=== PATIENT | male | born 1975 | race Caucasian/White ===

== ENCOUNTER 2021-10-29 12:01 | Inpatient (IN) ==
[2021-10-29] MEDS ORDERED: PANTOprazole 40 MG in SYRINGE 0 ML IV ONE (12:53)
[2021-10-29] MEDS ORDERED: PANTOprazole 80 MG in DEXTROSE 5% 100 ML IV ONE (12:53)
[2021-10-29] MEDS ORDERED: SODIUM CHLORIDE 0.9% 250 ML IV PRN (12:54)
--- NOTE | 2021-10-29 12:57 | Emergency Department Note ---
Impression & Plan Acute GI bleeding, Dark stools, Dark emesis, Acute hyponatremia, COVID-19 ED Provider Note NAME: INDERJIT [id number] MARIANO AGE: 45 SEX: M : 1975 ARRIVES VIA: Ambulance INFORMANT: Patient ED PROVIDER(S): Tyrell Eller DO CHIEF COMPLAINT: GI bleed HPI: Patient is a 45-year-old male who presents to the ER for vomiting up coffee-ground emesis/black material as well as having dark black stools. He was from the [facility] he was found to be hypotensive and tachycardic. He notes that over the past 2 days he has been taking about 10 tabs of Motrin daily. No chest pain or shortness of breath. He does feel nauseated in the stomach. No dysuria urgency or frequency. He has never had this before. He does not take any steroids or any blood thinners. No other exacerbating or remitting factors. No iron. ROS: See above HPI for pertinent positives & negatives. A total of 10 systems reviewed and were otherwise negative. PAST MEDICAL HISTORY:See Below PAST SURGICAL HISTORY:See Below FAMILY HISTORY:See Below SOCIAL HISTORY:See Below HOME MEDICATIONS:See Below ALLERGIES:See Below VITALS:See Below PHYSICAL EXAMINATION: GENERAL: Sitting up in bed, alert, slightly ill-appearing, disheveled EYE EXAM: normal conjunctiva. PERRL and EOM's grossly intact. OROPHARYNX: no exudate, no erythema, lips, buccal mucosa, and tongue normal and mucous membranes are moist NECK: supple, no nuchal rigidity, no adenopathy, non-tender LUNGS: Clear to auscultation. Normal chest wall mechanics HEART: no murmurs, S1 normal and S2 normal ABDOMEN: abdomen soft, non-tender, normo-active bowel sounds, no masses, no rebound or guarding. RECTAL: Heme positive stool slightly darker UPPER EXTREMITIES: upper extremities are grossly normal. LOWER EXTREMITIES: No pitting edema. NEURO EXAM: Normal sensorium, cranial nerves II-XII grossly intact, normal speech, no gross weakness of arms, no gross weakness of legs. MEDICAL DECISION MAKING: Patient is a 45-year-old male who presents the ER for vomiting up blood and dark tarry stools. He was found to the presenting hypotensive and tachycardic. Upon arrival systolic pressures were in the 90s and heart rate was in the 120s. 2 IVs were established blood work was obtained. He was ordered uncrossed blood and this was hung prior to the result of his CBC which eventually showed a hemoglobin of 10. Platelets were appropriate. INR unremarkable. BMP with mild hypokalemia. BUN was elevated at 38 suggesting and confirming upper GI bleed likely. Mag was slightly low. LFTs bilirubin and troponin were negative. Patient was COVID-positive. He was given 2 L of IV fluids. He was updated bedside. Discussed with Zo Arguelles who agrees with CT and admission to medicine and they will likely scope in the morning. Discussed with Dr. Fransico Mitchell from [facility] for further evaluation and admission. Triage Nursing notes reviewed. Limited review of prior medical records performed Vital Signs: reviewed and remarkable for tachy Differential diagnosis: Differential diagnosis includes etiologies such as diverticulitis, diverticulosis, AVM, coagulopathy, colitis, inflammatory bowel disease, malignancy, Jazzy-Green tear, esophagitis, peptic ulcer disease, variceal bleed, gastritis, epistaxis, fissure, hemorrhoids, as well as others were entertained. ER treatment provided: See below Diagnostics interpreted by me: ECG: Sinus tachycardia rate of 113 Normal axis No PVCs QTC 447 Cardiac Monitoring: An order was placed for continuous cardiac monitoring. The monitor shows a rate of 110 with sinus rhythm. Laboratory studies: As stated above and show below. Imaging studies: CT abdomen pelvis was unremarkable Consultation(s): As described above discussed with gastroenterology as well as the hospitalist Procedures: none Critical Care: I have personally spent 35 minutes of critical care time in the direct management of this patient. This includes bedside care, interpretation of diagnostic studies, and testing, discussion with consultants, patient, and family members, and other required patient management activities. This 35 minutes is in excess of all separately billable procedures. Past Med/Surg History Medical History (Updated 10/29/21 @ 18:56 by Tyrell Eller DO) No pertinent past medical history Surgical History (Updated 10/29/21 @ 15:59 by Jaya Mitchell) No pertinent past surgical history Family History (Updated 10/29/21 @ 16:00 by Jaya Mitchell) Father , age 48; NH? Heart disease Denies family history of Digestive system disease Social History (Updated 10/29/21 @ 16:01 by Jaya Barnes Smoking Status: Former smoker Tobacco Type: Cigarettes Age Started Using Tobacco: 20; Age Quit Using Tobacco: 44; packs per day: 1.5; Hx Alcohol Use: No Hx Substance Use: No marital status: Single Current Living Situation: Other Current Living Situation Comment: incarcerated current occupational status: previously employed Allergies Allergies Allergy/AdvReac Type Severity Reaction Status Date / Time No Known Drug Allergies Allergy Unknown Unknown Unverified 10/29/21 13:45 Home Meds Home Medications Medication Instructions Recorded Confirmed No Known Home Medications 10/29/21 10/29/21 Results & Data (ED) Vital Signs Vital Signs - 24 hr 10/29/21 12:18 10/29/21 13:30 10/29/21 13:38 Temperature 37 C 37.1 C 37.1 C Temperature Source Oral Oral Oral Pulse Rate 110 H 110 H 109 H Pulse Rate from SpO2 Sensor Pulse Rhythm Respiratory Rate 18 19 16 Respiratory Effort / Characteristics Non-Labored Spontaneous Respiratory Depth Normal Blood Pressure 104/61 110/81 110/81 Blood Pressure Mean 75 90 90 Blood Pressure Position Pulse Oximetry 99 Oxygen Delivery Method Room Air Sepsis Recent Fever Within 48 Hours No Sepsis New/Unexplained Change in Mental Status No Sepsis Action Taken by Nursing No Action Required 10/29/21 12:53 10/29/21 13:53 10/29/21 14:08 Temperature 37.3 C 37.2 C Temperature Source Oral Oral Pulse Rate 111 H 108 H Pulse Rate from SpO2 Sensor Pulse Rhythm Regular Regular Respiratory Rate 17 17 Respiratory Effort / Characteristics Respiratory Depth Blood Pressure 114/74 120/82 Blood Pressure Mean 87 94 Blood Pressure Position Lying Lying Pulse Oximetry 99 100 100 Oxygen Delivery Method Room Air Sepsis Recent Fever Within 48 Hours Sepsis New/Unexplained Change in Mental Status Sepsis Action Taken by Nursing 10/29/21 14:38 10/29/21 15:38 10/29/21 13:00 Temperature 37.4 C 37.6 C H Temperature Source Oral Oral Pulse Rate 104 H 112 H 115 H Pulse Rate from SpO2 Sensor 113 H Pulse Rhythm Respiratory Rate 20 20 21 Respiratory Effort / Characteristics Respiratory Depth Blood Pressure 122/77 112/78 Blood Pressure Mean 92 89 Blood Pressure Position Lying Pulse Oximetry 100 100 98 Oxygen Delivery Method Sepsis Recent Fever Within 48 Hours Sepsis New/Unexplained Change in Mental Status Sepsis Action Taken by Nursing 10/29/21 13:01 10/29/21 13:01 10/29/21 13:07 Temperature Temperature Source Pulse Rate 110 H Pulse Rate from SpO2 Sensor 110 H Pulse Rhythm Respiratory Rate 16 Respiratory Effort / Characteristics Respiratory Depth Blood Pressure 110/77 111/74 Blood Pressure Mean 88 86 Blood Pressure Position Pulse Oximetry 98 Oxygen Delivery Method Sepsis Recent Fever Within 48 Hours Sepsis New/Unexplained Change in Mental Status Sepsis Action Taken by Nursing 10/29/21 13:07 10/29/21 13:30 10/29/21 13:30 Temperature Temperature Source Pulse Rate 107 H 96 H Pulse Rate from SpO2 Sensor 104 H 99 H Pulse Rhythm Respiratory Rate 17 9 L Respiratory Effort / Characteristics Respiratory Depth Blood Pressure 113/77 Blood Pressure Mean 89 Blood Pressure Position Pulse Oximetry 99 100 Oxygen Delivery Method Sepsis Recent Fever Within 48 Hours Sepsis New/Unexplained Change in Mental Status Sepsis Action Taken by Nursing 10/29/21 13:32 10/29/21 13:32 10/29/21 13:45 Temperature Temperature Source Pulse Rate 109 H Pulse Rate from SpO2 Sensor 110 H Pulse Rhythm Respiratory Rate 16 Respiratory Effort / Characteristics Respiratory Depth Blood Pressure 110/81 120/76 Blood Pressure Mean 90 90 Blood Pressure Position Pulse Oximetry 100 Oxygen Delivery Method Sepsis Recent Fever Within 48 Hours Sepsis New/Unexplained Change in Mental Status Sepsis Action Taken by Nursing 10/29/21 13:45 10/29/21 13:53 10/29/21 13:53 Temperature Temperature Source Pulse Rate 108 H 117 H Pulse Rate from SpO2 Sensor 108 H 117 H Pulse Rhythm Respiratory Rate 19 16 Respiratory Effort / Characteristics Respiratory Depth Blood Pressure 114/74 Blood Pressure Mean 87 Blood Pressure Position Pulse Oximetry 100 99 Oxygen Delivery Method Sepsis Recent Fever Within 48 Hours Sepsis New/Unexplained Change in Mental Status Sepsis Action Taken by Nursing 10/29/21 14:00 10/29/21 14:00 10/29/21 14:12 Temperature Temperature Source Pulse Rate 111 H Pulse Rate from SpO2 Sensor 111 H Pulse Rhythm Respiratory Rate 18 Respiratory Effort / Characteristics Respiratory Depth Blood Pressure 121/78 120/82 Blood Pressure Mean 92 94 Blood Pressure Position Pulse Oximetry 100 Oxygen Delivery Method Sepsis Recent Fever Within 48 Hours Sepsis New/Unexplained Change in Mental Status Sepsis Action Taken by Nursing 10/29/21 14:12 10/29/21 14:15 10/29/21 14:15 Temperature Temperature Source Pulse Rate 104 H 115 H Pulse Rate from SpO2 Sensor 104 H 115 H Pulse Rhythm Respiratory Rate 19 26 H Respiratory Effort / Characteristics Respiratory Depth Blood Pressure 132/82 Blood Pressure Mean 98 Blood Pressure Position Pulse Oximetry 100 100 Oxygen Delivery Method Sepsis Recent Fever Within 48 Hours Sepsis New/Unexplained Change in Mental Status Sepsis Action Taken by Nursing 10/29/21 14:30 10/29/21 14:30 10/29/21 14:39 Temperature Temperature Source Pulse Rate 110 H 105 H Pulse Rate from SpO2 Sensor 110 H 105 H Pulse Rhythm Respiratory Rate 21 21 Respiratory Effort / Characteristics Respiratory Depth Blood Pressure 126/77 Blood Pressure Mean 93 Blood Pressure Position Pulse Oximetry 100 100 Oxygen Delivery Method Sepsis Recent Fever Within 48 Hours Sepsis New/Unexplained Change in Mental Status Sepsis Action Taken by Nursing 10/29/21 14:39 10/29/21 14:45 10/29/21 14:45 Temperature Temperature Source Pulse Rate 103 H Pulse Rate from SpO2 Sensor 103 H Pulse Rhythm Respiratory Rate 22 Respiratory Effort / Characteristics Respiratory Depth Blood Pressure 122/77 118/75 Blood Pressure Mean 92 89 Blood Pressure Position Pulse Oximetry 100 Oxygen Delivery Method Sepsis Recent Fever Within 48 Hours Sepsis New/Unexplained Change in Mental Status Sepsis Action Taken by Nursing 10/29/21 15:00 10/29/21 15:00 10/29/21 15:15 Temperature Temperature Source Pulse Rate 106 H Pulse Rate from SpO2 Sensor 106 H Pulse Rhythm Respiratory Rate 24 Respiratory Effort / Characteristics Respiratory Depth Blood Pressure 113/74 124/83 Blood Pressure Mean 87 96 Blood Pressure Position Pulse Oximetry 99 Oxygen Delivery Method Sepsis Recent Fever Within 48 Hours Sepsis New/Unexplained Change in Mental Status Sepsis Action Taken by Nursing 10/29/21 15:15 Temperature Temperature Source Pulse Rate 103 H Pulse Rate from SpO2 Sensor 109 H Pulse Rhythm Respiratory Rate 22 Respiratory Effort / Characteristics Respiratory Depth Blood Pressure Blood Pressure Mean Blood Pressure Position Pulse Oximetry 99 Oxygen Delivery Method Sepsis Recent Fever Within 48 Hours Sepsis New/Unexplained Change in Mental Status Sepsis Action Taken by Nursing Laboratory Data Result diagrams: 10/29/21 13:02 10/29/21 13:02 Lab Results 10/29/21 10/29/21 10/29/21 Range/Units 13:02 13:02 13:02 WBC 5.01 (4.8-10.8) K/ul RBC 3.65 L (4.63-6.08) M/uL Hgb 10.6 L (14.0-18.0) g/dl POC Hgb (14.0-18.0) g/dl Hct 30.7 L (40.1-51.0) % POC Hct (42-52) % MCV 84.1 (80.0-100.0) fL MCH 29.0 (25.0-34.0) pg MCHC 34.5 (32.0-36.0) g/dL RDW Std Deviation 40.8 (36.4-46.3) fL RDW Coeff of Paula 13.1 (11.5-14.5) % Plt Count 185 (130-400) K/uL MPV 9.2 L (9.4-12.4) fL Immature Gran % (Auto) 0.4 % Neut % (Auto) 79.8 % Lymph % (Auto) 7.4 % [place] % (Auto) 12.2 % Eos % (Auto) 0.0 % Baso % (Auto) 0.2 % Neut # (Auto) 4.00 (1.4-6.5) K/uL Lymph # (Auto) 0.37 L (1.2-3.4) K/uL [place] # (Auto) 0.61 (0.24-0.82) K/uL Eos # (Auto) 0.00 (0-0.50) K/uL Baso # (Auto) 0.01 (0-0.2) K/uL Immature Gran # (Auto) 0.02 (0.00-0.02) K/uL PT 11.1 (9.0-12.0) Seconds INR 1.0 (0.9-1.1) APTT 27.6 (21.0-31.0) Seconds PTT Ratio 1.0 POC Sodium (135-144) mmol/L Sodium (136-145) mmol/L POC Potassium (3.3-5.0) mmol/L Potassium (3.5-5.1) mmol/L POC Chloride (101-112) mmol/L Chloride (98-107) mmol/L Carbon Dioxide (21-32) mmol/L POC Total CO2 (24-31) mmol/L Anion Gap (3-11) POC Anion Gap (16-25) mmol/L POC BUN (7-18) mg/dl BUN (6-23) mg/dl Creatinine (0.6-1.4) mg/dl POC Creatinine (0.6-1.3) mg/dl Est Cr Clr Drug Dosing ml/min Est GFR ( Amer) ml/min Est GFR (Non-Af Amer) ml/min BUN/Creatinine Ratio (10-20) Glucose (70-99(Fasting)) mg/dl POC Glucose (other) (70-99) mg/dl Calcium (8.5-10.1) mg/dl POC Ioniz Calcium Lili (1.12-1.32) mmol/l Magnesium (1.7-2.4) mg/dl Iron (35-175) mcg/dl TIBC (250-450) mcg/dl Unsaturated IBC (155-355) mcg/dl Transferrin % Sat (20-50) % Ferritin (8-388) ng/ml Total Bilirubin (0.2-1.0) mg/dl AST (13-39) U/L ALT (7-52) U/L Alkaline Phosphatase (34-104) U/L Troponin I High Sens (0-20) pg/ml Total Protein (6.0-8.3) gm/dl Albumin (3.4-5.0) gm/dl Globulin (2.5-4.0) gm/dl Albumin/Globulin Ratio (0.9-2) Lipase (11-82) U/L SARS-CoV-2, RNA, NAAT (NEGATIVE) Blood Type A Positive Blood Type Recheck Antibody Screen NEGATIVE Crossmatch See Detail 10/29/21 10/29/21 10/29/21 Range/Units 13:02 13:02 13:12 WBC (4.8-10.8) K/ul RBC (4.63-6.08) M/uL Hgb (14.0-18.0) g/dl POC Hgb (14.0-18.0) g/dl Hct (40.1-51.0) % POC Hct (42-52) % MCV (80.0-100.0) fL MCH (25.0-34.0) pg MCHC (32.0-36.0) g/dL RDW Std Deviation (36.4-46.3) fL RDW Coeff of Paula (11.5-14.5) % Plt Count (130-400) K/uL MPV (9.4-12.4) fL Immature Gran % (Auto) % Neut % (Auto) % Lymph % (Auto) % [place] % (Auto) % Eos % (Auto) % Baso % (Auto) % Neut # (Auto) (1.4-6.5) K/uL Lymph # (Auto) (1.2-3.4) K/uL [place] # (Auto) (0.24-0.82) K/uL Eos # (Auto) (0-0.50) K/uL Baso # (Auto) (0-0.2) K/uL Immature Gran # (Auto) (0.00-0.02) K/uL PT (9.0-12.0) Seconds INR (0.9-1.1) APTT (21.0-31.0) Seconds PTT Ratio POC Sodium (135-144) mmol/L Sodium 134 L (136-145) mmol/L POC Potassium (3.3-5.0) mmol/L Potassium 3.9 (3.5-5.1) mmol/L POC Chloride (101-112) mmol/L Chloride 99 (98-107) mmol/L Carbon Dioxide 26 (21-32) mmol/L POC Total CO2 (24-31) mmol/L Anion Gap 9 (3-11) POC Anion Gap (16-25) mmol/L POC BUN (7-18) mg/dl BUN 38 H (6-23) mg/dl Creatinine 1.10 (0.6-1.4) mg/dl POC Creatinine (0.6-1.3) mg/dl Est Cr Clr Drug Dosing 70.8 ml/min Est GFR ( Amer) 94.8 ml/min Est GFR (Non-Af Amer) 81.8 ml/min BUN/Creatinine Ratio 34.5 H (10-20) Glucose 114 H (70-99(Fasting)) mg/dl POC Glucose (other) (70-99) mg/dl Calcium 8.4 L (8.5-10.1) mg/dl POC Ioniz Calcium Lili (1.12-1.32) mmol/l Magnesium 1.6 L (1.7-2.4) mg/dl Iron 13 L (35-175) mcg/dl TIBC 218 L (250-450) mcg/dl Unsaturated IBC 205 (155-355) mcg/dl Transferrin % Sat 6 L (20-50) % Ferritin 169.6 (8-388) ng/ml Total Bilirubin 0.2 (0.2-1.0) mg/dl AST 23 (13-39) U/L ALT 23 (7-52) U/L Alkaline Phosphatase 62 (34-104) U/L Troponin I High Sens 5.6 (0-20) pg/ml Total Protein 6.2 (6.0-8.3) gm/dl Albumin 3.6 (3.4-5.0) gm/dl Globulin 2.6 (2.5-4.0) gm/dl Albumin/Globulin Ratio 1.4 (0.9-2) Lipase 14 (11-82) U/L SARS-CoV-2, RNA, NAAT (NEGATIVE) Blood Type Blood Type Recheck A Positive Antibody Screen Crossmatch 10/29/21 10/29/21 Range/Units 13:19 13:50 WBC (4.8-10.8) K/ul RBC (4.63-6.08) M/uL Hgb (14.0-18.0) g/dl POC Hgb 10.2 L (14.0-18.0) g/dl Hct (40.1-51.0) % POC Hct 30 L (42-52) % MCV (80.0-100.0) fL MCH (25.0-34.0) pg MCHC (32.0-36.0) g/dL RDW Std Deviation (36.4-46.3) fL RDW Coeff of Paula (11.5-14.5) % Plt Count (130-400) K/uL MPV (9.4-12.4) fL Immature Gran % (Auto) % Neut % (Auto) % Lymph % (Auto) % [place] % (Auto) % Eos % (Auto) % Baso % (Auto) % Neut # (Auto) (1.4-6.5) K/uL Lymph # (Auto) (1.2-3.4) K/uL [place] # (Auto) (0.24-0.82) K/uL Eos # (Auto) (0-0.50) K/uL Baso # (Auto) (0-0.2) K/uL Immature Gran # (Auto) (0.00-0.02) K/uL PT (9.0-12.0) Seconds INR (0.9-1.1) APTT (21.0-31.0) Seconds PTT Ratio POC Sodium 134 L (135-144) mmol/L Sodium (136-145) mmol/L POC Potassium 3.9 (3.3-5.0) mmol/L Potassium (3.5-5.1) mmol/L POC Chloride 98 L (101-112) mmol/L Chloride (98-107) mmol/L Carbon Dioxide (21-32) mmol/L POC Total CO2 24 (24-31) mmol/L Anion Gap (3-11) POC Anion Gap 17.0 (16-25) mmol/L POC BUN 32 H (7-18) mg/dl BUN (6-23) mg/dl Creatinine (0.6-1.4) mg/dl POC Creatinine 1.1 (0.6-1.3) mg/dl Est Cr Clr Drug Dosing ml/min Est GFR ( Amer) ml/min Est GFR (Non-Af Amer) ml/min BUN/Creatinine Ratio (10-20) Glucose (70-99(Fasting)) mg/dl POC Glucose (other) 117 H (70-99) mg/dl Calcium (8.5-10.1) mg/dl POC Ioniz Calcium Lili 1.18 (1.12-1.32) mmol/l Magnesium (1.7-2.4) mg/dl Iron (35-175) mcg/dl TIBC (250-450) mcg/dl Unsaturated IBC (155-355) mcg/dl Transferrin % Sat (20-50) % Ferritin (8-388) ng/ml Total Bilirubin (0.2-1.0) mg/dl AST (13-39) U/L ALT (7-52) U/L Alkaline Phosphatase (34-104) U/L Troponin I High Sens (0-20) pg/ml Total Protein (6.0-8.3) gm/dl Albumin (3.4-5.0) gm/dl Globulin (2.5-4.0) gm/dl Albumin/Globulin Ratio (0.9-2) Lipase (11-82) U/L SARS-CoV-2, RNA, NAAT POSITIVE A* (NEGATIVE) Blood Type Blood Type Recheck Antibody Screen Crossmatch Administered Medications Pantoprazole Sodium 40 mg/ (Dextrose) 100 mls @ 20 mls/hr IV Q5H STEPAN Stop: 10/29/21 23:14 Last Admin: 10/29/21 18:14 Dose: 8 mg/hr, 20 mls/hr Documented By: DELIA Discontinued Medications Sodium Chloride (Nss 1000ml) 2,000 mls @ 999 mls/hr IV .Q2H1M STEPAN Stop: 10/29/21 15:00 Last Infusion: 10/29/21 16:39 Dose: 0 mls/hr Documented By: Admin: 10/29/21 13:22 Dose: 999 mls/hr Documented By: CASSY Pantoprazole Sodium 40 mg/ (Syringe) 10 mls @ 5 mls/min IV NOW ONE Stop: 10/29/21 12:54 Last Admin: 10/29/21 13:56 Dose: 5 mls/min Documented By: ROMEL Pantoprazole Sodium 80 mg/ (Dextrose) 100 mls @ 400 mls/hr IV NOW ONE Stop: 10/29/21 13:07 Last Infusion: 10/29/21 14:12 Dose: 0 mls/hr Documented By: Admin: 10/29/21 13:57 Dose: 400 mls/hr Documented By: ROMEL Ioversol (Optiray 320 100ml) 94 ml IV ONCE ONE Stop: 10/29/21 15:46 Last Admin: 10/29/21 15:48 Dose: 94 ml Documented By: [facility] Imaging Data Radiologist's Impression: Abdomen/Pelvis CT 10/29/21 13:36 CT SCAN OF THE ABDOMEN AND PELVIS WITH IV CONTRAST CLINICAL HISTORY: Periumbilical abdominal pain. GI bleeding. COMPARISON STUDY: No priors. TECHNIQUE: Following the IV administration of 94 cc of Optiray 320, CT scan of the abdomen and pelvis is performed from the lung bases to the proximal femora. Images are reviewed in the axial, sagittal, and coronal planes. IV contrast was administered without complication. A dose lowering technique was utilized adhering to the principles of ALARA. CT DOSE: 255.01 mGy.cm FINDINGS: Lung bases: The heart is normal in size and without pericardial effusion. The lung bases are clear. There is a small hiatal hernia. Liver: The contrast-enhanced liver is normal in size, contour, and attenuation. There is no intrahepatic biliary ductal dilatation. The hepatic veins and portal veins are patent. Gallbladder: Unremarkable. Spleen: Normal in size and attenuation. Pancreas: Unremarkable. Adrenal glands: Unremarkable. Kidneys: The contrast enhanced kidneys are normal in size and without hydronephrosis. The kidneys enhance symmetrically. Abdominal vasculature: The abdominal aorta is normal in course and caliber noting mild but age advanced atherosclerotic calcification. Bowel: There is mild/moderate colonic fecal retention. No bowel obstruction is seen. The appendix is well-visualized and normal. Peritoneum: There is no intraperitoneal free air or abdominal ascites. There is a fat-containing umbilical hernia. Lymphadenopathy: None. Pelvic viscera: The bladder, prostate, and seminal vesicles are normal as vis ualized. Skeletal structures: No lytic or blastic lesions are seen. IMPRESSION: No acute infectious or inflammatory findings are identified in the abdomen or pelvis. ACT 112: Negative or not required by law. Electronically signed by: Archie Pennington M.D. 10/29/2021 3:58 PM Discharge Plan Visit Data Chief Complaint: GI Bleed ED Provider: Tyrell Eller Discharge Problem: Acute GI bleeding, Dark stools, Dark emesis, Acute hyponatremia, COVID-19
[2021-10-29] MEDS ORDERED: SODIUM CHLORIDE 0.9% 1000ML 2,000 ML IV SCH (13:00)
[2021-10-29 13:17] LABS: Basophils # (auto) 0.01 K/uL (0-0.2); Basophils % (auto) 0.2 %; Hematocrit (blood only) 30.7 % (40.1-51.0); Hemoglobin 10.6 g/dl (14.0-18.0); Immature Granulocytes # (auto) 0.02 K/uL (0.00-0.02); Immature Granulocytes % (auto) 0.4 %; Lymphocytes # (auto) 0.37 K/uL (1.2-3.4); Lymphocytes % (auto) 7.4 %; Mean Corpuscular Hgb Conc 34.5 g/dL (32.0-36.0); Mean Corpuscular Volume 84.1 fL (80.0-100.0); Mean Platelet Volume 9.2 fL (9.4-12.4); Monocytes # (auto) 0.61 K/uL (0.24-0.82); Monocytes % (auto) 12.2 %; Neutrophils % (auto) 79.8 %; Platelet Count 185 K/uL (130-400); RDW Coefficient of Variation 13.1 % (11.5-14.5); RDW Standard Deviation 40.8 fL (36.4-46.3); Red Blood Count 3.65 M/uL (4.63-6.08); White Blood Count 5.01 K/ul (4.8-10.8)
[2021-10-29 13:28] LABS: Partial Thromboplastin Time 27.6 Seconds (21.0-31.0); Prothrombin Time 11.1 Seconds (9.0-12.0)
[2021-10-29 13:44] LABS: Troponin I High Sensitivity 5.6 pg/ml (0-20)
[2021-10-29 13:54] LABS: Albumin Globulin Ratio 1.4 (0.9-2); Albumin Level 3.6 gm/dl (3.4-5.0); BUN Creatinine Ratio 34.5 (10-20); Bilirubin,Total 0.2 mg/dl (0.2-1.0); Calcium 8.4 mg/dl (8.5-10.1); Creatinine Clr Calc Pharmacy 70.8 ml/min; Est GFR (African American) 94.8 ml/min; Est GFR (Non-African American) 81.8 ml/min; Globulin 2.6 gm/dl (2.5-4.0); Potassium 3.9 mmol/L (3.5-5.1); Total Protein 6.2 gm/dl (6.0-8.3)
--- NOTE | 2021-10-29 15:18 | History & Physical Report ---
Date of Service October 29, 2021 Assessment & Plan (1) Upper GI bleed: Plan: Symptoms (epigastric pain), signs (tachycardia, coffee-ground emesis, elevated BUN), etc all c/w upper GI tract bleeding. Diff - gastritis from NSAIDs vs PUD vs esophagitis vs other. He does have a small hiatal hernia on CT a/p which will make him more susceptible to GERD. Plan - NPO, copious IV fluids, serial H/H's q6h, PPI drip, GI consultation with Nicola DAS for consideration of EGD. He is s/p 1 unit of PRBCs in the ER - monitor for the need for additional units. Telemetry. Stop all NSAIDs; change to morphine prn pain/headache. (2) Acute blood loss anemia: Plan: 2nd to #1. Serial H/H's, telemetry, GI consultation, etc. Check Fe studies on blood already in lab - MCV was low-normal on presenting CBC. If Fe deficient this would argue he has chronic GI tract issues in addition to the acute bleed. (3) COVID-19: Plan: I believe that his headaches that started Thursday pm were likely from his COVID illness. Thus, is about day #2-3 of his illness. Other URI symptoms are c/w COVID. Fortunately he is stable from a pulmonary standpoint - no pneumonia, O2 sats wnl, etc. No indication for IV steroids or Remdesivir. COVID/airborne isolation precautions. IV tylenol prn for any fever (and can also be used for headache). (4) Headache: Plan: 2nd to #3. Treat symptoms. Morphine prn; avoid NSAIDs due to #1. (5) DVT prophylaxis: Plan: SCDs chemical means contraindicated in the setting of #1, #2 (6) Hyponatremia: Plan: 2nd to vomiting & intravascular volume depletion. isotonic fluids. repeat BMP am. History of Present Illness Chief Complaint: headaches, vomiting with blood, dark stools Primary Care Provider: MAHI Snowden 45yo male with no significant PMH presents to [facility] with headaches beginning late Thursday pm into Thursday am. Frontal in location and quite severe with some associated sinus congestion. He saw the [facility] and was given ibuprofen 400mg and took at least 2 doses on Thursday. Thursday evening he took another dose (600 or 800mg?) of ibuprofen. He is not on chronic NSAIDs or daily aspirin. He only gets occasional headaches. He had very poor appetite on Thursday with little liquid intake. No fevers or chills, but by report had fever at the [facility] this am. Has felt tired. No cough or dyspnea. No chest pain. He had COVID in May 2020 per his recollection. This am he developed upper abdominal discomfort associated with at least 2 episodes of coffee-ground emesis. He also had diarrhea that was melenotic in appearance. No bright red blood per rectum or any bright red blood in the vomit. He felt very weak & dizzy today with any activity. Due to the concerns for GI bleeding he was brought to [facility]. He is COVID+ in the ER. Initial Hb was 10.6, and due to tachycardia & symptomatic anemia he was given 1 unit of PRBCs by the ER staff. He denies any chronic GI ailment or disorder. He denies chronic GERD symptoms. He has never had an EGD or colonoscopy. Allergies Allergy/AdvReac Type Severity Reaction Status Date / Time No Known Drug Allergies Allergy Unknown Unknown Unverified 10/29/21 13:45 Home Medications Medication Instructions Recorded Confirmed Type No Known Home Medications 10/29/21 10/29/21 History Past Med/Surg History Medical History (Updated 10/29/21 @ 16:14 by Jaya Mitchell) No pertinent past medical history Surgical History (Updated 10/29/21 @ 15:59 by Jaya Mitchell) No pertinent past surgical history Family History (Updated 10/29/21 @ 16:00 by Jaya Mitchell) Father , age 48; [place]? Heart disease Denies family history of Digestive system disease Social History (Updated 10/29/21 @ 16:01 by Jaya Mitchell) Smoking Status: Former smoker Tobacco Type: Cigarettes Age Started Using Tobacco: 20; Age Quit Using Tobacco: 44; packs per day: 1.5; Hx Alcohol Use: No Hx Substance Use: No marital status: Single Current Living Situation: Other Current Living Situation Comment: incarcerated current occupational status: previously employed Review of Systems Review of Systems: gen - fever this am with some minor chills; loss of appetite over the weekend eyes - no visual change HENT - no ear pain; mild sore throat with sinus congestion neck - no pain CV - no chest pain pulm - no cough or dyspnea GI - upper abdominal pain, coffee-ground emesis, melena stool this am; no chronic GI symptoms - no dysuria musculo - no myalgias skin - no rash neuro - headaches - frontal x 2 days, but no paresthesias or focal weakness endo - no Diabetes psych - no history of mental health issues Physical Exam Physical Exam: gen - NAD, mildly pale eyes - PERRL HENT - MMM, no lesions; edentulous neck - no JVD, no masses lymph - no cervical lymph nodes heart - tachycardic, s1 s2, no murmurs lungs - CTA b/l abd - mild epigastric tenderness, BS+, ND, soft, no HSM KASI deferred (by report there was gross melena) ext - no edema, pulses 2+ b/l musculo - no joint effusions skin - no rash; mild pallor neuro - strength 5/5 x 4 exts; no facial droop Results & Data Results & Data ([facility]) Vital Signs (Past 12 Hours) Vital Signs Temp Pulse Resp BP Pulse Ox O2 Del Method 10/29/21 14:38 37.4 C 104 H 20 122/77 100 10/29/21 14:08 37.2 C 108 H 17 120/82 100 10/29/21 13:53 37.3 C 111 H 17 114/74 100 10/29/21 12:53 99 Room Air 10/29/21 13:38 37.1 C 109 H 16 110/81 10/29/21 13:30 37.1 C 110 H 19 110/81 10/29/21 12:18 37 C 110 H 18 104/61 99 Room Air Laboratory Results Laboratory Results - last 24 hr 10/29/21 10/29/21 10/29/21 13:02 13:02 13:02 WBC 5.01 RBC 3.65 L Hgb 10.6 L POC Hgb Hct 30.7 L POC Hct MCV 84.1 MCH 29.0 MCHC 34.5 RDW Std Deviation 40.8 RDW Coeff of Paula 13.1 Plt Count 185 MPV 9.2 L Immature Gran % (Auto) 0.4 Neut % (Auto) 79.8 Lymph % (Auto) 7.4 [place] % (Auto) 12.2 Eos % (Auto) 0.0 Baso % (Auto) 0.2 Neut # (Auto) 4.00 Lymph # (Auto) 0.37 L [place] # (Auto) 0.61 Eos # (Auto) 0.00 Baso # (Auto) 0.01 Immature Gran # (Auto) 0.02 PT 11.1 INR 1.0 APTT 27.6 PTT Ratio 1.0 POC Sodium Sodium POC Potassium Potassium POC Chloride Chloride Carbon Dioxide POC Total CO2 Anion Gap POC Anion Gap POC BUN BUN Creatinine POC Creatinine Est Cr Clr Drug Dosing Est GFR ( Amer) Est GFR (Non-Af Amer) BUN/Creatinine Ratio Glucose POC Glucose (other) Calcium POC Ioniz Calcium Lili Magnesium Iron TIBC Unsaturated IBC Transferrin % Sat Ferritin Total Bilirubin AST ALT Alkaline Phosphatase Troponin I High Sens Total Protein Albumin Globulin Albumin/Globulin Ratio Lipase SARS-CoV-2, RNA, NAAT Blood Type A Positive Blood Type Recheck Antibody Screen NEGATIVE Crossmatch See Detail 10/29/21 10/29/21 10/29/21 13:02 13:02 13:12 WBC RBC Hgb POC Hgb Hct POC Hct MCV MCH MCHC RDW Std Deviation RDW Coeff of Paula Plt Count MPV Immature Gran % (Auto) Neut % (Auto) Lymph % (Auto) [place] % (Auto) Eos % (Auto) Baso % (Auto) Neut # (Auto) Lymph # (Auto) [place] # (Auto) Eos # (Auto) Baso # (Auto) Immature Gran # (Auto) PT INR APTT PTT Ratio POC Sodium Sodium 134 L POC Potassium Potassium 3.9 POC Chloride Chloride 99 Carbon Dioxide 26 POC Total CO2 Anion Gap 9 POC Anion Gap POC BUN BUN 38 H Creatinine 1.10 POC Creatinine Est Cr Clr Drug Dosing 70.8 Est GFR ( Amer) 94.8 Est GFR (Non-Af Amer) 81.8 BUN/Creatinine Ratio 34.5 H Glucose 114 H POC Glucose (other) Calcium 8.4 L POC Ioniz Calcium Lili Magnesium Pending Iron Pending TIBC Pending Unsaturated IBC Pending Transferrin % Sat Pending Ferritin Pending Total Bilirubin 0.2 AST 23 ALT 23 Alkaline Phosphatase 62 Troponin I High Sens 5.6 Total Protein 6.2 Albumin 3.6 Globulin 2.6 Albumin/Globulin Ratio 1.4 Lipase 14 SARS-CoV-2, RNA, NAAT Blood Type Blood Type Recheck A Positive Antibody Screen Crossmatch 10/29/21 10/29/21 13:19 13:50 WBC RBC Hgb POC Hgb 10.2 L Hct POC Hct 30 L MCV MCH MCHC RDW Std Deviation RDW Coeff of Paula Plt Count MPV Immature Gran % (Auto) Neut % (Auto) Lymph % (Auto) [place] % (Auto) Eos % (Auto) Baso % (Auto) Neut # (Auto) Lymph # (Auto) [place] # (Auto) Eos # (Auto) Baso # (Auto) Immature Gran # (Auto) PT INR APTT PTT Ratio POC Sodium 134 L Sodium POC Potassium 3.9 Potassium POC Chloride 98 L Chloride Carbon Dioxide POC Total CO2 24 Anion Gap POC Anion Gap 17.0 POC BUN 32 H BUN Creatinine POC Creatinine 1.1 Est Cr Clr Drug Dosing Est GFR ( Amer) Est GFR (Non-Af Amer) BUN/Creatinine Ratio Glucose POC Glucose (other) 117 H Calcium POC Ioniz Calcium Lili 1.18 Magnesium Iron TIBC Unsaturated IBC Transferrin % Sat Ferritin Total Bilirubin AST ALT Alkaline Phosphatase Troponin I High Sens Total Protein Albumin Globulin Albumin/Globulin Ratio Lipase SARS-CoV-2, RNA, NAAT POSITIVE A* Blood Type Blood Type Recheck Antibody Screen Crossmatch Diagnostic Findings Abdomen/Pelvis CT 10/29/21 13:36 CT SCAN OF THE ABDOMEN AND PELVIS WITH IV CONTRAST CLINICAL HISTORY: Periumbilical abdominal pain. GI bleeding. COMPARISON STUDY: No priors. TECHNIQUE: Following the IV administration of 94 cc of Optiray 320, CT scan of the abdomen and pelvis is performed from the lung bases to the proximal femora. Images are reviewed in the axial, sagittal, and coronal planes. IV contrast was administered without complication. A dose lowering technique was utilized adhering to the principles of ALARA. CT DOSE: 255.01 mGy.cm FINDINGS: Lung bases: The heart is normal in size and without pericardial effusion. The lung bases are clear. There is a small hiatal hernia. Liver: The contrast-enhanced liver is normal in size, contour, and attenuation. There is no intrahepatic biliary ductal dilatation. The hepatic veins and portal veins are patent. Gallbladder: Unremarkable. Spleen: Normal in size and attenuation. Pancreas: Unremarkable. Adrenal glands: Unremarkable. Kidneys: The contrast enhanced kidneys are normal in size and without hydronephrosis. The kidneys enhance symmetrically. Abdominal vasculature: The abdominal aorta is normal in course and caliber noting mild but age advanced atherosclerotic calcification. Bowel: There is mild/moderate colonic fecal retention. No bowel obstruction is seen. The appendix is well-visualized and normal. Peritoneum: There is no intraperitoneal free air or abdominal ascites. There is a fat-containing umbilical hernia. Lymphadenopathy: None. Pelvic viscera: The bladder, prostate, and seminal vesicles are normal as visualized. Skeletal structures: No lytic or blastic lesions are seen. IMPRESSION: No acute infectious or inflammatory findings are identified in the abdomen or pelvis. ACT 112: Negative or not required by law. Electronically signed by: Archie Pennington M.D. 10/29/2021 3:58 PM EKG - my reading - sinus tach, no ST changes Code Status & VTE Plan Code Status full code PG Care Time/CCT Total # of Minutes Spent Total Time Spent with Patient: Total time spent is greater than 50% in coordination of care (as documented) at patient's floor/unit and/or counseling patient: Coding Level of Care Code 92615 Initial Inpt Care Lvl 2 Diagnoses Upper GI bleed K92.2 Acute blood loss anemia D62 COVID-19 U07.1 Headache R51.9 DVT prophylaxis Z29.9 Hyponatremia E87.1
[2021-10-29 15:19] LABS: iSTAT Creatinine 1.1 mg/dl (0.6-1.3); iSTAT Hemoglobin 10.2 g/dl (14.0-18.0); iSTAT Ionized Calcium 1.18 mmol/l (1.12-1.32); iSTAT Potassium 3.9 mmol/L (3.3-5.0)
--- NOTE | 2021-10-29 15:30 | Gastrointestinal Consultation ---
Date of Consultation October 29, 2021 Assessment & Plan (1) Dark stools: 45 year old male presenting from [facility] for evaluation of coffee ground emesis and dark stools in the setting of NSAIDs misuse, COVID-19 positive. His platelet count, coagulation studies and liver tests are normal. CB showed anemia, HGB 10.6 w/ BUN 38. NPO Await results of CT scan Would continue IV PPI bolus and drip No NSAIDs No reported use of AC Trend H&H Monitor and document output Transfuse as needed per primary team Given hemodynamic stability since arrival would defer EGD today unless urgently indicated NPO after midnight until reviewed Thank you for allowing us to participate in the care of this patient. Please call with any acute changes, questions or concerns. Please see addendum below with additional recommendation from my supervising physician. (2) Dark emesis: Supervising Physician Co-Signing Physician Notes I discussed the case and reviewed the patient's outpatient coffee-ground emesis but appears to have only a month's COVID diagnosis I think it would be prudent to hold on upper endoscopic evaluation as it is likely to be low yield for the present time. If there is a significant decline in his hemoglobin and hematocrit during the hospital admission we can certainly reevaluate the need for endoscopic evaluation. History of Present Illness Reason for Consultation: coffee ground emesis Requesting Physician: Rafita Attending Physician: Rafita History of Present Illness 45 year old male with who presented to the ED for evaluation of coffee ground emesis, and dark stools. GI was asked to evaluate. In the interim, COVID-19 test returned positive. Initial consultation was conducted via chart review until discussed with attending. History suggests a 2 day history of NSAIDs misuse with 10 tab tablet of advil/motrin daily. Over the last day there was report of GI upset, nausea, vomiting which was noted to the dark. Was evaluated by staff at the facility and was recommended to present to the ED due to hypotension and tachycardia. He was made NPO, started on IV PPI bolus and drip. Covid-19 returned positive. HGB 10.6 with BUN 38. PLT 185. Coagulation studies normal with INR 1. Normal hepatic function tests. Lipase 14. CT was ordered but yet to be completed. Allergies Allergy/AdvReac Type Severity Reaction Status Date / Time No Known Drug Allergies Allergy Unknown Unknown Unverified 10/29/21 13:45 Home Medications Medication Instructions Recorded Confirmed Type No Known Home Medications 10/29/21 10/29/21 History Patient History Medical History (Updated 10/29/21 @ 16:14 by Jaya Mitchell) No pertinent past medical history Surgical History (Updated 10/29/21 @ 15:59 by Jaya Mitchell) No pertinent past surgical history Family History (Updated 10/29/21 @ 16:00 by Jaya Mitchell) Father , age 48; [place]? Heart disease Denies family history of Digestive system disease Social History (Updated 10/29/21 @ 16:01 by Jaya Mitchell) Smoking Status: Former smoker Tobacco Type: Cigarettes Age Started Using Tobacco: 20; Age Quit Using Tobacco: 44; packs per day: 1.5; Hx Alcohol Use: No Hx Substance Use: No marital status: Single Current Living Situation: Other Current Living Situation Comment: incarcerated current occupational status: previously employed Review of Systems Review of Systems: Chart review until discussed with attending given COVID-19 returned positive Physical Exam Physical Exam: Chart review until discussed with attending given COVID-19 returned positive Results & Data ([facility]) Vital Signs (Past 12 Hours) Vital Signs Temp Pulse Resp BP Pulse Ox O2 Del Method 10/29/21 14:38 37.4 C 104 H 20 122/77 100 10/29/21 14:08 37.2 C 108 H 17 120/82 100 10/29/21 13:53 37.3 C 111 H 17 114/74 100 10/29/21 12:53 99 Room Air 10/29/21 13:38 37.1 C 109 H 16 110/81 10/29/21 13:30 37.1 C 110 H 19 110/81 10/29/21 12:18 37 C 110 H 18 104/61 99 Room Air Laboratory Results 10/29/21 10/29/21 10/29/21 Range/Units 13:50 13:19 13:12 WBC (4.8-10.8) K/ul RBC (4.63-6.08) M/uL Hgb (14.0-18.0) g/dl POC Hgb 10.2 L (14.0-18.0) g/dl Hct (40.1-51.0) % POC Hct 30 L (42-52) % MCV (80.0-100.0) fL MCH (25.0-34.0) pg MCHC (32.0-36.0) g/dL RDW Std Deviation (36.4-46.3) fL RDW Coeff of Paula (11.5-14.5) % Plt Count (130-400) K/uL MPV (9.4-12.4) fL Immature Gran % (Auto) % Neut % (Auto) % Lymph % (Auto) % [place] % (Auto) % Eos % (Auto) % Baso % (Auto) % Neut # (Auto) (1.4-6.5) K/uL Lymph # (Auto) (1.2-3.4) K/uL [place] # (Auto) (0.24-0.82) K/uL Eos # (Auto) (0-0.50) K/uL Baso # (Auto) (0-0.2) K/uL Immature Gran # (Auto) (0.00-0.02) K/uL PT (9.0-12.0) Seconds INR (0.9-1.1) APTT (21.0-31.0) Seconds PTT Ratio POC Sodium 134 L (135-144) mmol/L Sodium (136-145) mmol/L POC Potassium 3.9 (3.3-5.0) mmol/L Potassium (3.5-5.1) mmol/L POC Chloride 98 L (101-112) mmol/L Chloride (98-107) mmol/L Carbon Dioxide (21-32) mmol/L POC Total CO2 24 (24-31) mmol/L Anion Gap (3-11) POC Anion Gap 17.0 (16-25) mmol/L POC BUN 32 H (7-18) mg/dl BUN (6-23) mg/dl Creatinine (0.6-1.4) mg/dl POC Creatinine 1.1 (0.6-1.3) mg/dl Est Cr Clr Drug Dosing ml/min Est GFR ( Amer) ml/min Est GFR (Non-Af Amer) ml/min BUN/Creatinine Ratio (10-20) Glucose (70-99(Fasting)) mg/dl POC Glucose (other) 117 H (70-99) mg/dl Calcium (8.5-10.1) mg/dl POC Ioniz Calcium Lili 1.18 (1.12-1.32) mmol/l Total Bilirubin (0.2-1.0) mg/dl AST (13-39) U/L ALT (7-52) U/L Alkaline Phosphatase (34-104) U/L Troponin I High Sens (0-20) pg/ml Total Protein (6.0-8.3) gm/dl Albumin (3.4-5.0) gm/dl Globulin (2.5-4.0) gm/dl Albumin/Globulin Ratio (0.9-2) Lipase (11-82) U/L SARS-CoV-2, RNA, NAAT POSITIVE A* (NEGATIVE) Blood Type Blood Type Recheck A Positive Antibody Screen Crossmatch 10/29/21 10/29/21 10/29/21 Range/Units 13:02 13:02 13:02 WBC 5.01 (4.8-10.8) K/ul RBC 3.65 L (4.63-6.08) M/uL Hgb 10.6 L (14.0-18.0) g/dl POC Hgb (14.0-18.0) g/dl Hct 30.7 L (40.1-51.0) % POC Hct (42-52) % MCV 84.1 (80.0-100.0) fL MCH 29.0 (25.0-34.0) pg MCHC 34.5 (32.0-36.0) g/dL RDW Std Deviation 40.8 (36.4-46.3) fL RDW Coeff of Paula 13.1 (11.5-14.5) % Plt Count 185 (130-400) K/uL MPV 9.2 L (9.4-12.4) fL Immature Gran % (Auto) 0.4 % Neut % (Auto) 79.8 % Lymph % (Auto) 7.4 % [place] % (Auto) 12.2 % Eos % (Auto) 0.0 % Baso % (Auto) 0.2 % Neut # (Auto) 4.00 (1.4-6.5) K/uL Lymph # (Auto) 0.37 L (1.2-3.4) K/uL [place] # (Auto) 0.61 (0.24-0.82) K/uL Eos # (Auto) 0.00 (0-0.50) K/uL Baso # (Auto) 0.01 (0-0.2) K/uL Immature Gran # (Auto) 0.02 (0.00-0.02) K/uL PT 11.1 (9.0-12.0) Seconds INR 1.0 (0.9-1.1) APTT 27.6 (21.0-31.0) Seconds PTT Ratio 1.0 POC Sodium (135-144) mmol/L Sodium 134 L (136-145) mmol/L POC Potassium (3.3-5.0) mmol/L Potassium 3.9 (3.5-5.1) mmol/L POC Chloride (101-112) mmol/L Chloride 99 (98-107) mmol/L Carbon Dioxide 26 (21-32) mmol/L POC Total CO2 (24-31) mmol/L Anion Gap 9 (3-11) POC Anion Gap (16-25) mmol/L POC BUN (7-18) mg/dl BUN 38 H (6-23) mg/dl Creatinine 1.10 (0.6-1.4) mg/dl POC Creatinine (0.6-1.3) mg/dl Est Cr Clr Drug Dosing 70.8 ml/min Est GFR ( Amer) 94.8 ml/min Est GFR (Non-Af Amer) 81.8 ml/min BUN/Creatinine Ratio 34.5 H (10-20) Glucose 114 H (70-99(Fasting)) mg/dl POC Glucose (other) (70-99) mg/dl Calcium 8.4 L (8.5-10.1) mg/dl POC Ioniz Calcium Lili (1.12-1.32) mmol/l Total Bilirubin 0.2 (0.2-1.0) mg/dl AST 23 (13-39) U/L ALT 23 (7-52) U/L Alkaline Phosphatase 62 (34-104) U/L Troponin I High Sens 5.6 (0-20) pg/ml Total Protein 6.2 (6.0-8.3) gm/dl Albumin 3.6 (3.4-5.0) gm/dl Globulin 2.6 (2.5-4.0) gm/dl Albumin/Globulin Ratio 1.4 (0.9-2) Lipase 14 (11-82) U/L SARS-CoV-2, RNA, NAAT (NEGATIVE) Blood Type Blood Type Recheck Antibody Screen Crossmatch 10/29/21 Range/Units 13:02 WBC (4.8-10.8) K/ul RBC (4.63-6.08) M/uL Hgb (14.0-18.0) g/dl POC Hgb (14.0-18.0) g/dl Hct (40.1-51.0) % POC Hct (42-52) % MCV (80.0-100.0) fL MCH (25.0-34.0) pg MCHC (32.0-36.0) g/dL RDW Std Deviation (36.4-46.3) fL RDW Coeff of Paula (11.5-14.5) % Plt Count (130-400) K/uL MPV (9.4-12.4) fL Immature Gran % (Auto) % Neut % (Auto) % Lymph % (Auto) % [place] % (Auto) % Eos % (Auto) % Baso % (Auto) % Neut # (Auto) (1.4-6.5) K/uL Lymph # (Auto) (1.2-3.4) K/uL [place] # (Auto) (0.24-0.82) K/uL Eos # (Auto) (0-0.50) K/uL Baso # (Auto) (0-0.2) K/uL Immature Gran # (Auto) (0.00-0.02) K/uL PT (9.0-12.0) Seconds INR (0.9-1.1) APTT (21.0-31.0) Seconds PTT Ratio POC Sodium (135-144) mmol/L Sodium (136-145) mmol/L POC Potassium (3.3-5.0) mmol/L Potassium (3.5-5.1) mmol/L POC Chloride (101-112) mmol/L Chloride (98-107) mmol/L Carbon Dioxide (21-32) mmol/L POC Total CO2 (24-31) mmol/L Anion Gap (3-11) POC Anion Gap (16-25) mmol/L POC BUN (7-18) mg/dl BUN (6-23) mg/dl Creatinine (0.6-1.4) mg/dl POC Creatinine (0.6-1.3) mg/dl Est Cr Clr Drug Dosing ml/min Est GFR ( Amer) ml/min Est GFR (Non-Af Amer) ml/min BUN/Creatinine Ratio (10-20) Glucose (70-99(Fasting)) mg/dl POC Glucose (other) (70-99) mg/dl Calcium (8.5-10.1) mg/dl POC Ioniz Calcium Lili (1.12-1.32) mmol/l Total Bilirubin (0.2-1.0) mg/dl AST (13-39) U/L ALT (7-52) U/L Alkaline Phosphatase (34-104) U/L Troponin I High Sens (0-20) pg/ml Total Protein (6.0-8.3) gm/dl Albumin (3.4-5.0) gm/dl Globulin (2.5-4.0) gm/dl Albumin/Globulin Ratio (0.9-2) Lipase (11-82) U/L SARS-CoV-2, RNA, NAAT (NEGATIVE) Blood Type A Positive Blood Type Recheck Antibody Screen NEGATIVE Crossmatch See Detail
[2021-10-29] MEDS ORDERED: OPTIRAY 320 100ml IV ONE (15:45)
--- NOTE | 2021-10-29 16:01 | CT Scan Report ---
CT SCAN OF THE ABDOMEN AND PELVIS WITH IV CONTRAST CLINICAL HISTORY: Periumbilical abdominal pain. GI bleeding. COMPARISON STUDY: No priors. TECHNIQUE: Following the IV administration of 94 cc of Optiray 320, CT scan of the abdomen and pelvi s is performed from the lung bases to the proximal femora. Images are reviewed in the axial, sagittal , and coronal planes. IV contrast was administered without complication. A dose lowering technique wa s utilized adhering to the principles of ALARA. CT DOSE: 255.01 mGy.cm FINDINGS: Lung bases: The heart is normal in size and without pericardial effusion. The lung bases are clear. T here is a small hiatal hernia. Liver: The contrast-enhanced liver is normal in size, contour, and attenuation. There is no intrahepa tic biliary ductal dilatation. The hepatic veins and portal veins are patent. Gallbladder: Unremarkable. Spleen: Normal in size and attenuation. Pancreas: Unremarkable. Adrenal glands: Unremarkable. Kidneys: The contrast enhanced kidneys are normal in size and without hydronephrosis. The kidneys enh ance symmetrically. Abdominal vasculature: The abdominal aorta is normal in course and caliber noting mild but age advanc ed atherosclerotic calcification. Bowel: There is mild/moderate colonic fecal retention. No bowel obstruction is seen. The appendix is well-visualized and normal. Peritoneum: There is no intraperitoneal free air or abdominal ascites. There is a fat-containing umbi lical hernia. Lymphadenopathy: None. Pelvic viscera: The bladder, prostate, and seminal vesicles are normal as visualized. Skeletal structures: No lytic or blastic lesions are seen. IMPRESSION: No acute infectious or inflammatory findings are identified in the abdomen or pelvis. ACT 112: Negative or not required by law. Electronically signed by: Archie Pennington M.D. 10/29/2021 3:58 PM
[2021-10-29 16:14] LABS: Magnesium 1.6 mg/dl (1.7-2.4)
[2021-10-29 16:32] LABS: Ferritin 169.6 ng/ml (8-388)
--- NOTE | 2021-10-29 17:28 | Electrocardiogram Report ---
Test Reason : Blood Pressure : / mmHG Vent. Rate : 113 BPM Atrial Rate : 113 BPM P-R Int : 130 ms QRS Dur : 072 ms QT Int : 326 ms P-R-T Axes : 058 049 015 degrees QTc Int : 447 ms Poor data quality, interpretation may be adversely affected Sinus tachycardia Otherwise normal ECG No previous ECGs available Confirmed by Giovanni Yanez ([id number]) on 10/29/2021 5:28:15 PM Referred By: [facility] Confirmed By:Giovanni Yanez
[2021-10-29] MEDS: PANTOprazole 40 MG in DEXTROSE 5% 100 ML IV SCH ×3 (18:14→23:02)
[2021-10-29] MEDS ORDERED: ONDANSETRON INJ 2 MG/ML 2 ML VIAL IV PRN (18:59)
[2021-10-29] MEDS ORDERED: ACETAMINOPHEN 1000 MG/100 ML IV IV PRN (18:59)
[2021-10-29] MEDS ORDERED: MoRPHine SULFATE 2 MG/ML CARP IV PRN (18:59)
[2021-10-29] MEDS ORDERED: ACETAMINOPHEN 1,000 MG/100 ML VIAL IV PRN (19:12)
[2021-10-29 19:49] LABS: Hematocrit (blood only) 29.8 % (40.1-51.0)
[2021-10-29] MEDS: D5NSS + 20MEQ KCL 20 MEQ/1,000 ML BAG IV SCH (19:59)
[2021-10-29] MEDS: MAGNESIUM SULFATE / D5W 1 GM/100 ML BAG IV SCH ×2 (20:28→21:34)
[2021-10-30 01:00] LABS: Hematocrit (blood only) 29.4 % (40.1-51.0); Hemoglobin 9.7 g/dl (14.0-18.0)
[2021-10-30] MEDS: PANTOprazole 40 MG in DEXTROSE 5% 100 ML IV SCH ×5 (03:00→23:07)
[2021-10-30] MEDS: D5NSS + 20MEQ KCL 20 MEQ/1,000 ML BAG IV SCH ×3 (03:01→19:33)
[2021-10-30 06:21] LABS: Hematocrit (blood only) 28.7 % (40.1-51.0); Hemoglobin 9.7 g/dl (14.0-18.0); Mean Corpuscular Hgb Conc 33.8 g/dL (32.0-36.0); Mean Corpuscular Volume 85.9 fL (80.0-100.0); Mean Platelet Volume 8.7 fL (9.4-12.4); Platelet Count 134 K/uL (130-400); RDW Coefficient of Variation 13.4 % (11.5-14.5); RDW Standard Deviation 42.2 fL (36.4-46.3); Red Blood Count 3.34 M/uL (4.63-6.08); White Blood Count 2.54 K/ul (4.8-10.8)
[2021-10-30 06:55] LABS: BUN Creatinine Ratio 14.3 (10-20); Calcium 6.7 mg/dl (8.5-10.1); Creatinine Clr Calc Pharmacy 91.4 ml/min; Est GFR (African American) 124.3 ml/min; Est GFR (Non-African American) 107.2 ml/min; Magnesium 2.1 mg/dl (1.7-2.4); Potassium 4.1 mmol/L (3.5-5.1)
[2021-10-30 07:11] LABS: Folate (Folic Acid) 21.07 ng/ml (>5.38)
[2021-10-30] MEDS ORDERED: STAT IV STA (07:33)
[2021-10-30] MEDS ORDERED: CALCIUM GLUCONATE 10% 2,000 MG in DEXTROSE 5% 50 ML IV ONE (07:45)
--- NOTE | 2021-10-30 09:12 | Gastroenterology Progress Note ---
Date of Service October 30, 2021 Assessment & Plan (1) Dark stools: Plan: 45 year old male presenting from [facility] for evaluation of coffee ground emesis and dark stools in the setting of NSAIDs misuse, COVID-19 positive. His platelet count, coagulation studies and liver tests are normal. CB showed anemia, HGB 10.6 w/ BUN 38. S/P transfusion RBC x 1 unit, HGB stable at 9.7 w/ normal BUN this AM and stable vital signs No acute indication for EGD Can have clear liquids today If H&H stable tomorrow AM, can advance to full liquids x 1 day then resume regular diet Thursday Would continue IV PPI bolus and drip x a total of 72 hours (Thursday AM) then PO PPI 40 mg BID for 6 weeks No NSAIDs No reported use of AC Trend H&H Monitor and document output Transfuse as needed per primary team Plan for OP EGD within the month, after isolation has ended Will sign off. Thank you for allowing us to participate in the care of this patient. Please call with any acute changes, questions or concerns. Please see addendum below with additional recommendation from my supervising physician. (2) Dark emesis: Admission and Anticipated Discharge Date Admission Date: October 29, 2021 Supervising Physician Co-Signing Physician Notes It appears that the patient's hemoglobin and hematocrit are remaining stable. I suspect that the patient did have peptic ulcer disease given his use of nonsteroidals but there does not appear to be strong evidence for active bleeding at the present time. Given this and his recent COVID diagnosis I think it would be prudent to hold on endoscopic evaluation for the present time. We would recommend continued use of IV Protonix for a total of 72 hours and Protonix 40 mg 1 time daily thereafter. Would also suggest use of Carafate 4 times daily for 2 weeks. The patient can be on a regular diet starting today and avoid use of nonsteroidals. We are planning to do a upper endoscopy in 4 to 6 weeks after his COVID infection is cleared. Recommendations Avoid use of nonsteroidals Carafate 1 g 4 times daily x2 weeks Protonix drip for total of 72 hours then 40 mg daily Upper endoscopy in 4 to 6 weeks Consider use of an iron supplement for 1 to 2 months Please call with any questions or concerns Subjective Chart reviewed, pt COVID-19 positive on isolation. Transfused x 1 unit RBC. HGB stable post transfusion. BUN normal this AM. Vitals stable. No documentation of output in medical record. Review of Systems Review of Systems: All systems reviewed & are unremarkable except as noted in HPI & below Physical Exam Constitutional: WD/WN, vitals as above Respiratory: normal respiratory effort, lungs clear to auscultation Cardiovascular: Rate/Rhythm: regular rate and regular rhythm Gastrointestinal (Abdomen): normal bowel sounds, soft, nontender, no hepatosplenomegaly Skin: no rashes, warm and dry Results & Data ([facility]) Vital Signs (Past 12 Hours) Vital Signs Temp Pulse Pulse Resp BP Pulse Ox O2 Del Method 10/30/21 08:11 36.2 C L 94 H 18 100/57 L 98 Room Air 10/30/21 03:02 36.7 C 90 16 101/61 98 Room Air 10/30/21 00:43 36.9 C 89 16 103/70 99 Room Air 10/29/21 22:57 91 H Laboratory Results 10/30/21 10/30/21 10/30/21 Range/Units 06:07 06:07 06:07 WBC 2.54 L (4.8-10.8) K/ul RBC 3.34 L (4.63-6.08) M/uL Hgb 9.7 L (14.0-18.0) g/dl POC Hgb (14.0-18.0) g/dl Hct 28.7 L (40.1-51.0) % POC Hct (42-52) % MCV 85.9 (80.0-100.0) fL MCH 29.0 (25.0-34.0) pg MCHC 33.8 (32.0-36.0) g/dL RDW Std Deviation 42.2 (36.4-46.3) fL RDW Coeff of Paual 13.4 (11.5-14.5) % Plt Count 134 (130-400) K/uL MPV 8.7 L (9.4-12.4) fL Immature Gran % (Auto) % Neut % (Auto) % Lymph % (Auto) % [place] % (Auto) % Eos % (Auto) % Baso % (Auto) % Neut # (Auto) (1.4-6.5) K/uL Lymph # (Auto) (1.2-3.4) K/uL [place] # (Auto) (0.24-0.82) K/uL Eos # (Auto) (0-0.50) K/uL Baso # (Auto) (0-0.2) K/uL Immature Gran # (Auto) (0.00-0.02) K/uL PT (9.0-12.0) Seconds INR (0.9-1.1) APTT (21.0-31.0) Seconds PTT Ratio POC Sodium (135-144) mmol/L Sodium 138 (136-145) mmol/L POC Potassium (3.3-5.0) mmol/L Potassium 4.1 (3.5-5.1) mmol/L POC Chloride (101-112) mmol/L Chloride 109 H (98-107) mmol/L Carbon Dioxide 28 (21-32) mmol/L POC Total CO2 (24-31) mmol/L Anion Gap 1 L (3-11) POC Anion Gap (16-25) mmol/L POC BUN (7-18) mg/dl BUN 12 D (6-23) mg/dl Creatinine 0.84 (0.6-1.4) mg/dl POC Creatinine (0.6-1.3) mg/dl Est Cr Clr Drug Dosing 91.4 ml/min Est GFR ( Amer) 124.3 ml/min Est GFR (Non-Af Amer) 107.2 ml/min BUN/Creatinine Ratio 14.3 (10-20) Glucose 105 H (70-99(Fasting)) mg/dl POC Glucose (other) (70-99) mg/dl Calcium 6.7 L (8.5-10.1) mg/dl POC Ioniz Calcium Lili (1.12-1.32) mmol/l Magnesium 2.1 (1.7-2.4) mg/dl Iron (35-175) mcg/dl TIBC (250-450) mcg/dl Unsaturated IBC (155-355) mcg/dl Transferrin % Sat (20-50) % Ferritin (8-388) ng/ml Total Bilirubin (0.2-1.0) mg/dl AST (13-39) U/L ALT (7-52) U/L Alkaline Phosphatase (34-104) U/L Troponin I High Sens (0-20) pg/ml Total Protein (6.0-8.3) gm/dl Albumin (3.4-5.0) gm/dl Globulin (2.5-4.0) gm/dl Albumin/Globulin Ratio (0.9-2) Lipase (11-82) U/L Vitamin B12 350 (180-914) pg/ml Folate 21.07 (>5.38) ng/ml SARS-CoV-2, RNA, NAAT (NEGATIVE) Blood Type Blood Type Recheck Antibody Screen Crossmatch 10/30/21 10/29/21 10/29/21 Range/Units 00:45 19:41 13:50 WBC (4.8-10.8) K/ul RBC (4.63-6.08) M/uL Hgb 9.7 L 10.0 L (14.0-18.0) g/dl POC Hgb (14.0-18.0) g/dl Hct 29.4 L 29.8 L (40.1-51.0) % POC Hct (42-52) % MCV (80.0-100.0) fL MCH (25.0-34.0) pg MCHC (32.0-36.0) g/dL RDW Std Deviation (36.4-46.3) fL RDW Coeff of Paula (11.5-14.5) % Plt Count (130-400) K/uL MPV (9.4-12.4) fL Immature Gran % (Auto) % Neut % (Auto) % Lymph % (Auto) % [place] % (Auto) % Eos % (Auto) % Baso % (Auto) % Neut # (Auto) (1.4-6.5) K/uL Lymph # (Auto) (1.2-3.4) K/uL [place] # (Auto) (0.24-0.82) K/uL Eos # (Auto) (0-0.50) K/uL Baso # (Auto) (0-0.2) K/uL Immature Gran # (Auto) (0.00-0.02) K/uL PT (9.0-12.0) Seconds INR (0.9-1.1) APTT (21.0-31.0) Seconds PTT Ratio POC Sodium (135-144) mmol/L Sodium (136-145) mmol/L POC Potassium (3.3-5.0) mmol/L Potassium (3.5-5.1) mmol/L POC Chloride (101-112) mmol/L Chloride (98-107) mmol/L Carbon Dioxide (21-32) mmol/L POC Total CO2 (24-31) mmol/L Anion Gap (3-11) POC Anion Gap (16-25) mmol/L POC BUN (7-18) mg/dl BUN (6-23) mg/dl Creatinine (0.6-1.4) mg/dl POC Creatinine (0.6-1.3) mg/dl Est Cr Clr Drug Dosing ml/min Est GFR ( Amer) ml/min Est GFR (Non-Af Amer) ml/min BUN/Creatinine Ratio (10-20) Glucose (70-99(Fasting)) mg/dl POC Glucose (other) (70-99) mg/dl Calcium (8.5-10.1) mg/dl POC Ioniz Calcium Lili (1.12-1.32) mmol/l Magnesium (1.7-2.4) mg/dl Iron (35-175) mcg/dl TIBC (250-450) mcg/dl Unsaturated IBC (155-355) mcg/dl Transferrin % Sat (20-50) % Ferritin (8-388) ng/ml Total Bilirubin (0.2-1.0) mg/dl AST (13-39) U/L ALT (7-52) U/L Alkaline Phosphatase (34-104) U/L Troponin I High Sens (0-20) pg/ml Total Protein (6.0-8.3) gm/dl Albumin (3.4-5.0) gm/dl Globulin (2.5-4.0) gm/dl Albumin/Globulin Ratio (0.9-2) Lipase (11-82) U/L Vitamin B12 (180-914) pg/ml Folate (>5.38) ng/ml SARS-CoV-2, RNA, NAAT POSITIVE A* (NEGATIVE) Blood Type Blood Type Recheck Antibody Screen Crossmatch 10/29/21 10/29/21 10/29/21 Range/Units 13:19 13:12 13:02 WBC (4.8-10.8) K/ul RBC (4.63-6.08) M/uL Hgb (14.0-18.0) g/dl POC Hgb 10.2 L (14.0-18.0) g/dl Hct (40.1-51.0) % POC Hct 30 L (42-52) % MCV (80.0-100.0) fL MCH (25.0-34.0) pg MCHC (32.0-36.0) g/dL RDW Std Deviation (36.4-46.3) fL RDW Coeff of Paula (11.5-14.5) % Plt Count (130-400) K/uL MPV (9.4-12.4) fL Immature Gran % (Auto) % Neut % (Auto) % Lymph % (Auto) % [place] % (Auto) % Eos % (Auto) % Baso % (Auto) % Neut # (Auto) (1.4-6.5) K/uL Lymph # (Auto) (1.2-3.4) K/uL [place] # (Auto) (0.24-0.82) K/uL Eos # (Auto) (0-0.50) K/uL Baso # (Auto) (0-0.2) K/uL Immature Gran # (Auto) (0.00-0.02) K/uL PT (9.0-12.0) Seconds INR (0.9-1.1) APTT (21.0-31.0) Seconds PTT Ratio POC Sodium 134 L (135-144) mmol/L Sodium (136-145) mmol/L POC Potassium 3.9 (3.3-5.0) mmol/L Potassium (3.5-5.1) mmol/L POC Chloride 98 L (101-112) mmol/L Chloride (98-107) mmol/L Carbon Dioxide (21-32) mmol/L POC Total CO2 24 (24-31) mmol/L Anion Gap (3-11) POC Anion Gap 17.0 (16-25) mmol/L POC BUN 32 H (7-18) mg/dl BUN (6-23) mg/dl Creatinine (0.6-1.4) mg/dl POC Creatinine 1.1 (0.6-1.3) mg/dl Est Cr Clr Drug Dosing ml/min Est GFR ( Amer) ml/min Est GFR (Non-Af Amer) ml/min BUN/Creatinine Ratio (10-20) Glucose (70-99(Fasting)) mg/dl POC Glucose (other) 117 H (70-99) mg/dl Calcium (8.5-10.1) mg/dl POC Ioniz Calcium Lili 1.18 (1.12-1.32) mmol/l Magnesium 1.6 L (1.7-2.4) mg/dl Iron 13 L (35-175) mcg/dl TIBC 218 L (250-450) mcg/dl Unsaturated IBC 205 (155-355) mcg/dl Transferrin % Sat 6 L (20-50) % Ferritin 169.6 (8-388) ng/ml Total Bilirubin (0.2-1.0) mg/dl AST (13-39) U/L ALT (7-52) U/L Alkaline Phosphatase (34-104) U/L Troponin I High Sens (0-20) pg/ml Total Protein (6.0-8.3) gm/dl Albumin (3.4-5.0) gm/dl Globulin (2.5-4.0) gm/dl Albumin/Globulin Ratio (0.9-2) Lipase (11-82) U/L Vitamin B12 (180-914) pg/ml Folate (>5.38) ng/ml SARS-CoV-2, RNA, NAAT (NEGATIVE) Blood Type Blood Type Recheck A Positive Antibody Screen Crossmatch 10/29/21 10/29/21 10/29/21 Range/Units 13:02 13:02 13:02 WBC 5.01 (4.8-10.8) K/ul RBC 3.65 L (4.63-6.08) M/uL Hgb 10.6 L (14.0-18.0) g/dl POC Hgb (14.0-18.0) g/dl Hct 30.7 L (40.1-51.0) % POC Hct (42-52) % MCV 84.1 (80.0-100.0) fL MCH 29.0 (25.0-34.0) pg MCHC 34.5 (32.0-36.0) g/dL RDW Std Deviation 40.8 (36.4-46.3) fL RDW Coeff of Paula 13.1 (11.5-14.5) % Plt Count 185 (130-400) K/uL MPV 9.2 L (9.4-12.4) fL Immature Gran % (Auto) 0.4 % Neut % (Auto) 79.8 % Lymph % (Auto) 7.4 % [place] % (Auto) 12.2 % Eos % (Auto) 0.0 % Baso % (Auto) 0.2 % Neut # (Auto) 4.00 (1.4-6.5) K/uL Lymph # (Auto) 0.37 L (1.2-3.4) K/uL [place] # (Auto) 0.61 (0.24-0.82) K/uL Eos # (Auto) 0.00 (0-0.50) K/uL Baso # (Auto) 0.01 (0-0.2) K/uL Immature Gran # (Auto) 0.02 (0.00-0.02) K/uL PT 11.1 (9.0-12.0) Seconds INR 1.0 (0.9-1.1) APTT 27.6 (21.0-31.0) Seconds PTT Ratio 1.0 POC Sodium (135-144) mmol/L Sodium 134 L (136-145) mmol/L POC Potassium (3.3-5.0) mmol/L Potassium 3.9 (3.5-5.1) mmol/L POC Chloride (101-112) mmol/L Chloride 99 (98-107) mmol/L Carbon Dioxide 26 (21-32) mmol/L POC Total CO2 (24-31) mmol/L Anion Gap 9 (3-11) POC Anion Gap (16-25) mmol/L POC BUN (7-18) mg/dl BUN 38 H (6-23) mg/dl Creatinine 1.10 (0.6-1.4) mg/dl POC Creatinine (0.6-1.3) mg/dl Est Cr Clr Drug Dosing 70.8 ml/min Est GFR ( Amer) 94.8 ml/min Est GFR (Non-Af Amer) 81.8 ml/min BUN/Creatinine Ratio 34.5 H (10-20) Glucose 114 H (70-99(Fasting)) mg/dl POC Glucose (other) (70-99) mg/dl Calcium 8.4 L (8.5-10.1) mg/dl POC Ioniz Calcium Lili (1.12-1.32) mmol/l Magnesium (1.7-2.4) mg/dl Iron (35-175) mcg/dl TIBC (250-450) mcg/dl Unsaturated IBC (155-355) mcg/dl Transferrin % Sat (20-50) % Ferritin (8-388) ng/ml Total Bilirubin 0.2 (0.2-1.0) mg/dl AST 23 (13-39) U/L ALT 23 (7-52) U/L Alkaline Phosphatase 62 (34-104) U/L Troponin I High Sens 5.6 (0-20) pg/ml Total Protein 6.2 (6.0-8.3) gm/dl Albumin 3.6 (3.4-5.0) gm/dl Globulin 2.6 (2.5-4.0) gm/dl Albumin/Globulin Ratio 1.4 (0.9-2) Lipase 14 (11-82) U/L Vitamin B12 (180-914) pg/ml Folate (>5.38) ng/ml SARS-CoV-2, RNA, NAAT (NEGATIVE) Blood Type Blood Type Recheck Antibody Screen Crossmatch 10/29/21 Range/Units 13:02 WBC (4.8-10.8) K/ul RBC (4.63-6.08) M/uL Hgb (14.0-18.0) g/dl POC Hgb (14.0-18.0) g/dl Hct (40.1-51.0) % POC Hct (42-52) % MCV (80.0-100.0) fL MCH (25.0-34.0) pg MCHC (32.0-36.0) g/dL RDW Std Deviation (36.4-46.3) fL RDW Coeff of Paula (11.5-14.5) % Plt Count (130-400) K/uL MPV (9.4-12.4) fL Immature Gran % (Auto) % Neut % (Auto) % Lymph % (Auto) % [place] % (Auto) % Eos % (Auto) % Baso % (Auto) % Neut # (Auto) (1.4-6.5) K/uL Lymph # (Auto) (1.2-3.4) K/uL [place] # (Auto) (0.24-0.82) K/uL Eos # (Auto) (0-0.50) K/uL Baso # (Auto) (0-0.2) K/uL Immature Gran # (Auto) (0.00-0.02) K/uL PT (9.0-12.0) Seconds INR (0.9-1.1) APTT (21.0-31.0) Seconds PTT Ratio POC Sodium (135-144) mmol/L Sodium (136-145) mmol/L POC Potassium (3.3-5.0) mmol/L Potassium (3.5-5.1) mmol/L POC Chloride (101-112) mmol/L Chloride (98-107) mmol/L Carbon Dioxide (21-32) mmol/L POC Total CO2 (24-31) mmol/L Anion Gap (3-11) POC Anion Gap (16-25) mmol/L POC BUN (7-18) mg/dl BUN (6-23) mg/dl Creatinine (0.6-1.4) mg/dl POC Creatinine (0.6-1.3) mg/dl Est Cr Clr Drug Dosing ml/min Est GFR ( Amer) ml/min Est GFR (Non-Af Amer) ml/min BUN/Creatinine Ratio (10-20) Glucose (70-99(Fasting)) mg/dl POC Glucose (other) (70-99) mg/dl Calcium (8.5-10.1) mg/dl POC Ioniz Calcium Lili (1.12-1.32) mmol/l Magnesium (1.7-2.4) mg/dl Iron (35-175) mcg/dl TIBC (250-450) mcg/dl Unsaturated IBC (155-355) mcg/dl Transferrin % Sat (20-50) % Ferritin (8-388) ng/ml Total Bilirubin (0.2-1.0) mg/dl AST (13-39) U/L ALT (7-52) U/L Alkaline Phosphatase (34-104) U/L Troponin I High Sens (0-20) pg/ml Total Protein (6.0-8.3) gm/dl Albumin (3.4-5.0) gm/dl Globulin (2.5-4.0) gm/dl Albumin/Globulin Ratio (0.9-2) Lipase (11-82) U/L Vitamin B12 (180-914) pg/ml Folate (>5.38) ng/ml SARS-CoV-2, RNA, NAAT (NEGATIVE) Blood Type A Positive Blood Type Recheck Antibody Screen NEGATIVE Crossmatch See Detail
[2021-10-30 12:59] LABS: Hematocrit (blood only) 29.6 % (40.1-51.0); Hemoglobin 9.9 g/dl (14.0-18.0)
[2021-10-30] MEDS ORDERED: IRON SUCROSE 200 MG in 0.9 % SODIUM CHLORIDE 100 ML IV ONE (14:19)
--- NOTE | 2021-10-30 16:58 | Hospitalist Progress Note ---
Date of Service October 30, 2021 Assessment & Plan (1) Upper GI bleed: Plan: H/H stable overnight. s/p 1 unit PRBCs. Stability of H/H argue that GI bleeding has resolved. Diff Dx - gastritis vs PUD vs other. Appreciate [facility] consultation. Recommendations - 1. PPI drip x 72 hours (initiated yesterday afternoon) - thus, stop on Thursday am 2. then PO PPI daily 3. carafate 1gm QID x 2 weeks 4. outpatient EGD 4-6 weeks 5. start clears now Will recheck H/H q6h today and if H/H remain stable can go to once daily CBC. (2) Acute blood loss anemia: Plan: 2nd to #1. Stable, no evidence of further GI bleeding. Venofer IV 200mg x 1 today. Then repeat Venofer tomorrow. B12 is low-normal - replace; folate is wnl. CBC in am. (3) COVID-19: Plan: Day #1 of illness - Thursday pm. O2 sats stable. minimal symptoms at this time. leukopenia, thrombocytopenia likely from COVID, however. No indication for IV steroids or Remdesivir. Cont COVID/airborne isolation precautions. (4) Headache: Plan: 2nd to #3. Improved. (5) DVT prophylaxis: Plan: SCDs chemical means contraindicated in the setting of #1, #2 (6) Hyponatremia: Plan: 2nd to vomiting & intravascular volume depletion. resolved s/p IV fluids. BMP am. (7) Pancytopenia: Plan: Leukopenia & thrombocytopenia likely 2nd to COVID infection. Anemia 2nd to GI bleeding. Repeat CBC am. (8) Hypocalcemia: Plan: 2nd to PRBC infusion?? other? albumin level is wnl. calcium gluconate 2gm IV x 1. repeat BMP am. (9) Hypomagnesemia: Plan: replaced resolved Admission and Anticipated Discharge Date Admission Date: October 29, 2021 Subjective tele stable overnight denies abd pain, nausea, emesis, diarrhea, coffee-ground emesis, hematemesis headaches largely resolved no new COVID symptoms no cough Review of Systems Review of Systems: gen - no fevers or chills HENT - no loss of taste or smell pulm - no dyspnea GI - no melena stools musculo - no myalgias Physical Exam Physical Exam: gen - looks better today, NAD skin - mild pallor mouth - MMM heart - RRR, s1 s2, no murmur lungs - CTA b/l abd - soft NT ND BS+; no HSM ext - no edema, pulses 2+ b/l Results & Data Results & Data ([facility]) Vital Signs (Past 12 Hours) Vital Signs Temp Pulse Resp BP Pulse Ox O2 Del Method 10/30/21 16:02 36.8 C 89 20 115/75 100 Room Air 10/30/21 11:53 36.9 C 93 H 20 110/63 99 Room Air 10/30/21 08:00 Room Air 10/30/21 08:11 36.2 C L 94 H 18 100/57 L 98 Room Air Laboratory Results Laboratory Results - last 24 hr 10/29/21 10/29/21 10/30/21 13:02 19:41 00:45 WBC RBC Hgb 10.0 L 9.7 L Hct 29.8 L 29.4 L MCV MCH MCHC RDW Std Deviation RDW Coeff of Paula Plt Count MPV Sodium Potassium Chloride Carbon Dioxide Anion Gap BUN Creatinine Est Cr Clr Drug Dosing Est GFR ( Amer) Est GFR (Non-Af Amer) BUN/Creatinine Ratio Glucose Calcium Magnesium Vitamin B12 Folate Nasal Screen MRSA (PCR) Blood Type A Positive Antibody Screen NEGATIVE Crossmatch See Detail 10/30/21 10/30/21 10/30/21 06:07 06:07 06:07 WBC 2.54 L RBC 3.34 L Hgb 9.7 L Hct 28.7 L MCV 85.9 MCH 29.0 MCHC 33.8 RDW Std Deviation 42.2 RDW Coeff of Paula 13.4 Plt Count 134 MPV 8.7 L Sodium 138 Potassium 4.1 Chloride 109 H Carbon Dioxide 28 Anion Gap 1 L BUN 12 D Creatinine 0.84 Est Cr Clr Drug Dosing 91.4 Est GFR ( Amer) 124.3 Est GFR (Non-Af Amer) 107.2 BUN/Creatinine Ratio 14.3 Glucose 105 H Calcium 6.7 L Magnesium 2.1 Vitamin B12 350 Folate 21.07 Nasal Screen MRSA (PCR) Blood Type Antibody Screen Crossmatch 10/30/21 10/30/21 11:54 12:41 WBC RBC Hgb 9.9 L Hct 29.6 L MCV MCH MCHC RDW Std Deviation RDW Coeff of Paula Plt Count MPV Sodium Potassium Chloride Carbon Dioxide Anion Gap BUN Creatinine Est Cr Clr Drug Dosing Est GFR ( Amer) Est GFR (Non-Af Amer) BUN/Creatinine Ratio Glucose Calcium Magnesium Vitamin B12 Folate Nasal Screen MRSA (PCR) Negative Blood Type Antibody Screen Crossmatch PG Care Time/CCT Total # of Minutes Spent Total Time Spent with Patient: Total time spent is greater than 50% in coordination of care (as documented) at patient's floor/unit and/or counseling patient: Coding Level of Care Code 26923 Subseq Hosp Care Lvl 3 Diagnoses Upper GI bleed K92.2 Acute blood loss anemia D62 COVID-19 U07.1 Headache R51.9 DVT prophylaxis Z29.9 Hyponatremia E87.1 Pancytopenia D61.818 Hypocalcemia E83.51 Hypomagnesemia E83.42
[2021-10-30] MEDS ORDERED: ACETAMINOPHEN 500 MG TAB PO PRN (18:06)
[2021-10-30 18:17] LABS: Hematocrit (blood only) 29.2 % (40.1-51.0); Hemoglobin 9.8 g/dl (14.0-18.0)
[2021-10-30] MEDS: SUCRALFATE 1 GM/10 ML UDC PO SCH (19:42)
[2021-10-31 00:49] LABS: Hematocrit (blood only) 28.5 % (40.1-51.0); Hemoglobin 9.4 g/dl (14.0-18.0)
[2021-10-31] MEDS: D5NSS + 20MEQ KCL 20 MEQ/1,000 ML BAG IV SCH (03:37)
[2021-10-31] MEDS: PANTOprazole 40 MG in DEXTROSE 5% 100 ML IV SCH ×4 (04:22→16:51)
[2021-10-31 06:59] LABS: Basophils # (auto) 0.01 K/uL (0-0.2); Basophils % (auto) 0.5 %; Eosinophils # (auto) 0.03 K/uL (0-0.50); Eosinophils % (auto) 1.5 %; Hematocrit (blood only) 29.1 % (40.1-51.0); Hemoglobin 9.6 g/dl (14.0-18.0); Lymphocytes # (auto) 0.54 K/uL (1.2-3.4); Lymphocytes % (auto) 27.4 %; Mean Corpuscular Hemoglobin 28.7 pg (25.0-34.0); Mean Corpuscular Volume 87.1 fL (80.0-100.0); Mean Platelet Volume 9.3 fL (9.4-12.4); Monocytes # (auto) 0.23 K/uL (0.24-0.82); Monocytes % (auto) 11.7 %; Neutrophils # (auto) 1.16 K/uL (1.4-6.5); Neutrophils % (auto) 58.9 %; Platelet Count 148 K/uL (130-400); RDW Coefficient of Variation 13.5 % (11.5-14.5); RDW Standard Deviation 42.5 fL (36.4-46.3); Red Blood Count 3.34 M/uL (4.63-6.08); White Blood Count 1.97 K/ul (4.8-10.8)
[2021-10-31 07:18] LABS: BUN Creatinine Ratio 5.3 (10-20); Calcium 7.3 mg/dl (8.5-10.1); Creatinine Clr Calc Pharmacy 101.2 ml/min; Est GFR (African American) 129.5 ml/min; Est GFR (Non-African American) 111.7 ml/min; Potassium 3.9 mmol/L (3.5-5.1)
[2021-10-31] MEDS: CYANOCOBALAMIN (B-12) 500 MCG TABLET PO SCH (08:23)
[2021-10-31] MEDS: SUCRALFATE 1 GM/10 ML UDC PO SCH ×4 (08:23→20:31)
[2021-10-31] MEDS ORDERED: IRON SUCROSE 300 MG in SODIUM CHLORIDE 0.9% 250 ML IV ONE (09:04)
--- NOTE | 2021-10-31 21:03 | Hospitalist Progress Note ---
Date of Service October 31, 2021 Assessment & Plan (1) Upper GI bleed: Plan: Resolved clinically. Again H/H stable overnight. s/p 1 unit PRBCs hospital day #1. Diff Dx - gastritis vs PUD vs other. Appreciate [facility] consultation. 1. Cont PPI drip x 72 hours (stop on Thursday about noon) 2. then PO PPI daily thereafter 3. carafate 1gm QID x 2 weeks 4. outpatient EGD 4-6 weeks 5. advance diet today to regular Check cbc in am. (2) Acute blood loss anemia: Plan: 2nd to #1. Stable, no evidence of further GI bleeding. Venofer IV 300mg x 1 today. Then repeat Venofer 300mg tomorrow. B12 is low-normal - replace; folate is wnl. CBC in am. (3) COVID-19: Plan: Day #1 of illness - Thursday pm. Thus, today is about day #5 into the illlness. O2 sats remain stable. minimal symptoms at this time. Slight cough only. leukopenia, thrombocytopenia likely from COVID. No indication for IV steroids or Remdesivir. Cont COVID/airborne isolation precautions. Repeat cbc am. (4) Headache: Plan: 2nd to #3. resolved. (5) DVT prophylaxis: Plan: SCDs chemical means contraindicated in the setting of #1, #2 (6) Hyponatremia: Plan: 2nd to vomiting & intravascular volume depletion. resolved s/p IV fluids. (7) Pancytopenia: Plan: Leukopenia & thrombocytopenia likely 2nd to COVID infection. Anemia 2nd to GI bleeding. Repeat CBC am. thrombocytopenia starting to improve. wbc low but does not require any Rx. (8) Hypocalcemia: Plan: 2nd to PRBC infusion?? other? improved today. (9) Hypomagnesemia: Plan: replaced resolved Plan can likely d/c back to assisted on Thursday afternoon BPs are low-nl -- give additional isotonic fluid overnight Admission and Anticipated Discharge Date Admission Date: October 29, 2021 Subjective tele stable overnight pt without abd pain, nausea, emesis, melena, BRBPR, coffee-ground emesis had normal, regular diet today and this went well without any GI ill effects COVID - slight cough, but headache resolved; otherwise feels good no dizziness Review of Systems Review of Systems: gen - no fevers or chills cv - no cp pulm - no dyspnea Physical Exam Physical Exam: gen - looks great, NAD mouth - MMM neck - no JVD heart - RRR, s1 s2, no murmur lungs - CTA b/l abd - soft NT ND BS+; no HSM ext - no edema, pulses 2+ b/l Results & Data Results & Data ([facility]) Vital Signs (Past 12 Hours) Vital Signs Temp Pulse Pulse Resp BP Pulse Ox O2 Del Method 10/31/21 19:41 37.0 C 96 H 18 93/66 L 97 Room Air 10/31/21 17:06 37.0 C 90 18 109/60 96 Room Air 10/31/21 14:48 85 10/31/21 12:03 36.7 C 89 20 94/63 L 98 Room Air Laboratory Results Laboratory Results - last 24 hr 10/31/21 10/31/21 10/31/21 00:28 06:22 06:22 WBC 1.97 L RBC 3.34 L Hgb 9.4 L 9.6 L Hct 28.5 L 29.1 L MCV 87.1 MCH 28.7 MCHC 33.0 RDW Std Deviation 42.5 RDW Coeff of Paula 13.5 Plt Count 148 MPV 9.3 L Immature Gran % (Auto) 0.0 Neut % (Auto) 58.9 Lymph % (Auto) 27.4 [place] % (Auto) 11.7 Eos % (Auto) 1.5 Baso % (Auto) 0.5 Neut # (Auto) 1.16 L Lymph # (Auto) 0.54 L [place] # (Auto) 0.23 L Eos # (Auto) 0.03 Baso # (Auto) 0.01 Immature Gran # (Auto) 0.00 Sodium 138 Potassium 3.9 Chloride 107 Carbon Dioxide 28 Anion Gap 3 BUN 4 L Creatinine 0.76 Est Cr Clr Drug Dosing 101.2 Est GFR ( Amer) 129.5 Est GFR (Non-Af Amer) 111.7 BUN/Creatinine Ratio 5.3 L Glucose 109 H Calcium 7.3 L PG Care Time/CCT Total # of Minutes Spent Total Time Spent with Patient: Total time spent is greater than 50% in coordination of care (as documented) at patient's floor/unit and/or counseling patient: Coding Level of Care Code 94665 Subseq Hosp Care Lvl 2 Diagnoses Upper GI bleed K92.2 Acute blood loss anemia D62 COVID-19 U07.1 Headache R51.9 DVT prophylaxis Z29.9 Hyponatremia E87.1 Pancytopenia D61.818 Hypocalcemia E83.51 Hypomagnesemia E83.42
[2021-10-31] MEDS: SODIUM CHLORIDE 0.9% 1000ML 1,000 ML IV SCH (22:10)
[2021-11-01] MEDS: PANTOprazole 40 MG in DEXTROSE 5% 100 ML IV SCH ×2 (01:00→06:00)
[2021-11-01 06:40] LABS: Hematocrit (blood only) 30.1 % (40.1-51.0); Hemoglobin 10.1 g/dl (14.0-18.0); Mean Corpuscular Hgb Conc 33.6 g/dL (32.0-36.0); Mean Corpuscular Volume 86.5 fL (80.0-100.0); Mean Platelet Volume 9.1 fL (9.4-12.4); Platelet Count 163 K/uL (130-400); RDW Coefficient of Variation 13.3 % (11.5-14.5); Red Blood Count 3.48 M/uL (4.63-6.08); White Blood Count 2.45 K/ul (4.8-10.8)
[2021-11-01 07:18] LABS: BUN Creatinine Ratio 9.7 (10-20); Calcium 7.8 mg/dl (8.5-10.1); Creatinine Clr Calc Pharmacy 83.2 ml/min; Est GFR (African American) 116.1 ml/min; Est GFR (Non-African American) 100.2 ml/min; Potassium 4.1 mmol/L (3.5-5.1)
[2021-11-01] MEDS: CYANOCOBALAMIN (B-12) 500 MCG TABLET PO SCH (08:26)
[2021-11-01] MEDS: SUCRALFATE 1 GM/10 ML UDC PO SCH ×2 (08:26→11:51)
[2021-11-01] MEDS: SODIUM CHLORIDE 0.9% 1000ML 1,000 ML IV SCH (08:48)
[2021-11-01] MEDS ORDERED: IRON SUCROSE 300 MG in SODIUM CHLORIDE 0.9% 250 ML IV ONE (09:00)
--- NOTE | 2021-11-01 10:55 | Discharge Summary ---
Date of Service November 01, 2021 Admission HPI Per Admitting Provider 45yo male with no significant PMH presents to [facility] with headaches beginning late Thursday pm into Thursday am. Frontal in location and quite severe with some associated sinus congestion. He saw the [facility] and was given ibuprofen 400mg and took at least 2 doses on Thursday. Thursday evening he took another dose (600 or 800mg?) of ibuprofen. He is not on chronic NSAIDs or daily aspirin. He only gets occasional headaches. He had very poor appetite on Thursday with little liquid intake. No fevers or chills, but by report had fever at the longterm this am. Has felt tired. No cough or dyspnea. No chest pain. He had COVID in May 2020 per his recollection. This am he developed upper abdominal discomfort associated with at least 2 episodes of coffee-ground emesis. He also had diarrhea that was melenotic in appearance. No bright red blood per rectum or any bright red blood in the vomit. He felt very weak & dizzy today with any activity. Due to the concerns for GI bleeding he was brought to [facility]. He is COVID+ in the ER. Initial Hb was 10.6, and due to tachycardia & symptomatic anemia he was given 1 unit of PRBCs by the ER staff. He denies any chronic GI ailment or disorder. He denies chronic GERD symptoms. He has never had an EGD or colonoscopy. Discharge Exam gen - looks great, NAD mouth - MMM neck - no JVD heart - RRR, s1 s2, no murmur lungs - CTA b/l abd - soft NT ND BS+; no HSM ext - no edema, pulses 2+ b/l Discharge Data Allergies Allergy/AdvReac Type Severity Reaction Status Date / Time No Known Drug Allergies Allergy Unknown Unknown Unverified 10/29/21 13:45 Consultations 10/29/21 14:50 ED Decision to Admit Stat 10/29/21 18:59 Consult Gastroenterology Routine Ordered Studies 10/29/21 13:36 CT Abd and Pelvis [CT abd pelvis IV con only] Stat Hospital Course (1) Upper GI bleed: Resolved clinically. Again H/H stable overnight. s/p 1 unit PRBCs hospital day #1. Diff Dx - gastritis vs PUD vs other. Appreciate [facility] consultation. 1. Cont PPI drip x 72 hours (stop on Thursday about noon) 2. then PO PPI daily thereafter 3. carafate 1gm QID x 2 weeks 4. outpatient EGD 4-6 weeks 5. advance diet today to regular Check cbc in am. (2) Acute blood loss anemia: 2nd to #1. Stable, no evidence of further GI bleeding. Venofer IV 300mg x 1 today. Then repeat Venofer 300mg tomorrow. B12 is low-normal - replace; folate is wnl. CBC in am. (3) COVID-19: Day #1 of illness - Thursday pm. Thus, today is about day #5 into the illlness. O2 sats remain stable. minimal symptoms at this time. Slight cough only. leukopenia, thrombocytopenia likely from COVID. No indication for IV steroids or Remdesivir. Cont COVID/airborne isolation precautions. Repeat cbc am. (4) Headache: 2nd to #3. resolved. (5) DVT prophylaxis: SCDs chemical means contraindicated in the setting of #1, #2 (6) Hyponatremia: 2nd to vomiting & intravascular volume depletion. resolved s/p IV fluids. (7) Pancytopenia: Leukopenia & thrombocytopenia likely 2nd to COVID infection. Anemia 2nd to GI bleeding. Repeat CBC am. thrombocytopenia starting to improve. wbc low but does not require any Rx. (8) Hypocalcemia: 2nd to PRBC infusion?? other? improved today. (9) Hypomagnesemia: replaced resolved Plan can likely d/c back to longterm on Thursday afternoon BPs are low-nl -- give additional isotonic fluid overnight Discharge Plan Discharge Items [facility] Reason For Visit: ACUTE BLOOD LOSS ANEMIA, UPPER GI BLEEDING; COVID+ Discharge Diagnosis: 1. Likely upper GI bleeding - resolved; suspected 2nd to NSAID use 2. Acute blood loss anemia 2nd to #1 - stable, discharge hemoglobin 10.1 3. COVID illness - resolving 4. 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 ) Isi CHAMPAGNE [Primary Care Provider] - Diet: Regular Addtl Attending Provider Instructions: Mr Iqbal was treated for upper GI bleeding in the midst of COVID-19 illness. Upper GI bleeding was treated with IV PPI drip x 3 days. EGD was deferred due to active COVID infection. Needed 1 unit or PRBCS. H/H stable x 2 days following transfusion with discharge hemoglobin 10.1. Received 3 doses of IV venofer while here. GI bleeding suspected to be due to NSAIDs but will need EGD as below as outpatient. Needs the following - 1. EGD by Dr Anna Avery or his partners in 4-6 weeks at [facility]. Please call their office to arrange. 2. Carafate QID x 2 weeks. 3. Protonix daily until otherwise directed. 4. NO NSAIDS (no aspirin, motrin, ibuprofen, naprosyn, excedrin migraine, alleve, voltaren, etc). 5. TYLENOL IS OK for headache, etc. 6. Regular diet. 7. Vitamin B12 supplement orally daily x 1 year. 8. COVID isolation precautions per [facility] protocol. 9. Repeat CBC with diff in 2-3 days for stability. WBC count and platelets have been low likely 2nd to COVID infection. H/H low due to bleeding. Pending Studies at Discharge: No Stand-Alone Forms: My [facility] Skilled Items Patient informed of condition?: Yes Discharge Level of Care: Other Communicable Disease: Yes Discharge Prognosis: Stable Lines: None Urinary Catheter: No Medications and DC Order Prescriptions: New pantoprazole [Protonix] 40 mg tablet,delayed release (DR/EC) 40 mg PO QAM Qty: 30 5RF sucralfate [Carafate] 1 gram tablet 1 g PO ACHS 14 Days Qty: 56 0RF cyanocobalamin (vitamin B-12) 1,000 mcg capsule 1,000 mcg PO DAILY Qty: 90 3RF Rx Instructions: x 1 year duration. Admission Data Admit Date/Time: 10/29/21 15:52 Attending Provider: Jaya Mitchell Admit Provider: Jaya Mitchell Primary Care Provider: Isi CHAMPAGNE Other Providers: Jaya Mitchell ; Anna Avery Coding Diagnoses Upper GI bleed K92.2 Acute blood loss anemia D62 COVID-19 U07.1 Headache R51.9 DVT prophylaxis Z29.9 Hyponatremia E87.1 Pancytopenia D61.818 Hypocalcemia E83.51 Hypomagnesemia E83.42
== END 2021-11-01 15:27 | DRG 377 ==
LOC: ED 12:01 → 2E 15:52